=== PATIENT | female | born 1960 | race Caucasian/White ===

== ENCOUNTER → 2016-06-01 | Outpatient (CLI) | payer OTHER ==
[~2016-06-01] VITALS: Ht 172.7 cm; Wt 75.7 kg
[~2016-06-01] MED LIST: FLEXERIL10 MG PO; LEVAQUIN750 MG PO; NORCO 5/3251 TABLET PO; PERCOCET 5/31 TABLET PO; PREDNISONE20 MG PO; PROAIR RESPICL90 MCG IH; PROVENTIL HFA6.7 GM IH; TYLENOL WITH C1 EACH PO; ZOFRAN ODT4 MG PO
== END | disposition home or self-care (01) ==
LOC: AMB 08:36
DX: R10.31 Right lower quadrant pain (principal); K21.9 Gastro-esophageal reflux disease without esophagitis; K20.9 Esophagitis, unspecified; K44.9 Diaphragmatic hernia without obstruction or gangrene; R10.13 Epigastric pain; R19.5 Other fecal abnormalities; D12.0 Benign neoplasm of cecum; D12.3 Benign neoplasm of transverse colon; M54.5 Low back pain
CPT/HCPCS: 88305; 88342 TC; B4087; J2405; J3010

== ENCOUNTER 2016-06-09 21:00 | Emergency (ER) | payer OTHER ==
[~2016-06-09] VITALS: Ht 172.7 cm; Wt 77.6 kg
[~2016-06-09 21:00] MED LIST changes: -ZOFRAN ODT4 MG PO
[2016-06-09 21:59] LABS: ADD MIUA? NO; BILIRUBIN NEGATIVE; BLOOD NEGATIVE; COLOR YELLOW ((YELLOW)); GLUCOSE (STRIP) NEGATIVE; KETONES NEGATIVE; LEUKOCYTES NEGATIVE; NITRITE NEGATIVE; PROTEIN (STRIP) NEGATIVE; SPECIFIC GRAVITY 1.019 (1.000-1.030); UCUL ADDED? NO; UROBILINOGEN 0.2 MG/DL (0.2-1.0)
[2016-06-09 22:02] LABS: MCH 32.8 PG (29.0-34.0); MCV 93.7 FL (83-99); MEAN PLAT.VOLUME 9.5 uM^3 (9.5-12.4); PLATELET COUNT 203 K/uL (156-360); RBC DIS.WIDTH-CV 11.9 % (11.8-14.6); RBC DIS.WIDTH-SD 39.8 % (39-53); RED BLOOD COUNT 4.27 M/uL (3.80-5.20); WHITE BLOOD COUNT 5.8 K/uL (4.1-10.2)
[2016-06-09 22:14] LABS: CHLORIDE 104 mEq/L (99-109); POTASSIUM 4.1 mEq/L (3.7-5.4); SODIUM 139 mEq/L (136-147)
[2016-06-09 22:16] LABS: GLUCOSE 93 mg/dL (70-99)
[2016-06-09 22:17] LABS: ANION GAP 11 MEQ/L (2-14)
[2016-06-09 22:18] LABS: TOTAL BILIRUBIN 0.2 mg/dL (0.0-1.0)
[2016-06-09 22:20] LABS: ALKALINE PHOSPHATASE 89 IU/L (3-129); GFR ESTIMATE (CALCULATED) > 59 mL/min/
[2016-06-09 22:21] LABS: UREA NITROGEN (BUN) 16 mg/dL (9-23)
[2016-06-09 22:23] LABS: LIPASE 22 U/L (1.0-51.0)
[2016-06-09 22:32] LABS: QUANTITATIVE HCG 4.1 MIU/ML
[2016-06-10] MEDS ORDERED: PERCOCET 5/31 TABLET PO (00:52)
[2016-06-10] MEDS ORDERED: ZOFRAN ODT4 MG PO (00:52)
[2016-06-10 01:04] VITALS: BP 98/65
== END 2016-06-10 01:05 | disposition home or self-care (01) ==
LOC: EME 21:00
DX: R10.31 Right lower quadrant pain (principal); K92.1 Melena; Z98.890 Other specified postprocedural states; R19.09 Other intra-abdominal and pelvic swelling, mass and lump; F17.200 Nicotine dependence, unspecified, uncomplicated
CPT/HCPCS: 74177; 80053; 81003; 83690; 84702; 85027; 99281; 99285; J1170; J2405; J7030

== ENCOUNTER → 2016-06-23 | Outpatient (CLI) | payer OTHER ==
[~2016-06-23] MED LIST changes: +ZOFRAN ODT4 MG PO
== END | disposition home or self-care (01) ==
LOC: CDC 08:35
DX: Z01.810 Encounter for preprocedural cardiovascular examination (principal); D12.0 Benign neoplasm of cecum
CPT/HCPCS: 93000

== ENCOUNTER 2016-06-28 05:22 | Inpatient (IN) | payer OTHER ==
[~2016-06-28] VITALS: Ht 180.3 cm; Wt 75.7 kg
[2016-06-28 06:39] VITALS: BP 133/81
[2016-06-28 06:53] VITALS: BP 133/81
[2016-06-28 16:28] VITALS: BP 145/85
[2016-06-28 18:36] VITALS: BP 146/94
[2016-06-28 22:13] VITALS: BP 136/74
[2016-06-29 02:43] VITALS: BP 134/86
[2016-06-29 07:14] LABS: ALKALINE PHOSPHATASE 57 IU/L (3-129); ANION GAP 8 MEQ/L (2-14); CHLORIDE 105 MEQ/L (99-109); GFR ESTIMATE (CALCULATED) > 59 mL/min/; GLUCOSE 87 mg/dL (70-99); MAGNESIUM 1.5 mg/dl (1.3-2.7); POTASSIUM 3.7 MEQ/L (3.7-5.4); SAMPLE HEMOLYSIS CHECK 0; SAMPLE ICTERIC CHECK 0; SAMPLE LIPEMIA CHECK 0; SODIUM 139 MEQ/L (136-147); TOTAL BILIRUBIN 0.5 MG/DL (0.0-1.0); UREA NITROGEN (BUN) 12 mg/dL (9-23)
[2016-06-29 07:42] VITALS: BP 168/77
[2016-06-29 07:50] LABS: HEMATOCRIT 33.4 % (36.0-46.0); MCH 31.7 PG (29.0-34.0); MCHC 34.4 G/DL (30.0-36.0); MEAN PLAT.VOLUME 9.5 uM^3 (9.5-12.4); PLATELET COUNT 149 K/uL (156-360); RBC DIS.WIDTH-CV 12.1 % (11.8-14.6); RBC DIS.WIDTH-SD 41.1 % (39-53); RED BLOOD COUNT 3.63 M/uL (3.80-5.20); WHITE BLOOD COUNT 9.2 K/uL (4.1-10.2)
[2016-06-29 08:32] VITALS: BP 134/76
[2016-06-29 12:10] VITALS: BP 160/79
[2016-06-29 16:06] VITALS: BP 159/71
[2016-06-29 22:42] VITALS: BP 131/80
[2016-06-30 03:15] VITALS: BP 141/80
[2016-06-30 06:50] LABS: HEMATOCRIT 34.1 % (36.0-46.0); MCH 31.9 PG (29.0-34.0); MCHC 34.3 G/DL (30.0-36.0); MCV 92.9 FL (83-99); MEAN PLAT.VOLUME 10.2 uM^3 (9.5-12.4); PLATELET COUNT 150 K/uL (156-360); RBC DIS.WIDTH-CV 11.9 % (11.8-14.6); RBC DIS.WIDTH-SD 40.5 % (39-53); RED BLOOD COUNT 3.67 M/uL (3.80-5.20); WHITE BLOOD COUNT 8.3 K/uL (4.1-10.2)
[2016-06-30 07:24] LABS: ANION GAP 9 MEQ/L (2-14); CHLORIDE 104 MEQ/L (99-109); GFR ESTIMATE (CALCULATED) > 59 mL/min/; GLUCOSE 80 mg/dL (70-99); MAGNESIUM 1.5 mg/dl (1.3-2.7); POTASSIUM 3.8 MEQ/L (3.7-5.4); SAMPLE HEMOLYSIS CHECK 0; SAMPLE ICTERIC CHECK 0; SAMPLE LIPEMIA CHECK 0; SODIUM 141 MEQ/L (136-147); UREA NITROGEN (BUN) 11 mg/dL (9-23)
[2016-06-30 08:08] VITALS: BP 135/82
[2016-06-30 12:00] VITALS: BP 133/86
[2016-06-30 17:05] VITALS: BP 156/84
[2016-06-30 19:30] VITALS: BP 162/92
[2016-07-01 03:07] VITALS: BP 135/78
[2016-07-01 06:37] LABS: HEMATOCRIT 30.5 % (36.0-46.0); MCH 31.8 PG (29.0-34.0); MCHC 34.8 G/DL (30.0-36.0); MCV 91.6 FL (83-99); MEAN PLAT.VOLUME 9.9 uM^3 (9.5-12.4); PLATELET COUNT 132 K/uL (156-360); RBC DIS.WIDTH-CV 11.9 % (11.8-14.6); RBC DIS.WIDTH-SD 40.1 % (39-53); RED BLOOD COUNT 3.33 M/uL (3.80-5.20); WHITE BLOOD COUNT 5.8 K/uL (4.1-10.2)
[2016-07-01 06:49] LABS: ANION GAP 8 MEQ/L (2-14); CHLORIDE 104 MEQ/L (99-109); GFR ESTIMATE (CALCULATED) > 59 mL/min/; GLUCOSE 93 mg/dL (70-99); MAGNESIUM 1.5 mg/dl (1.3-2.7); POTASSIUM 3.6 MEQ/L (3.7-5.4); SAMPLE HEMOLYSIS CHECK 0; SAMPLE ICTERIC CHECK 0; SAMPLE LIPEMIA CHECK 0; SODIUM 140 MEQ/L (136-147); UREA NITROGEN (BUN) 8 mg/dL (9-23)
[2016-07-01 09:20] VITALS: BP 124/78
[2016-07-01 16:46] VITALS: BP 158/88
[2016-07-01 20:08] VITALS: BP 155/80
[2016-07-01 22:46] VITALS: BP 120/80
[2016-07-02 03:33] VITALS: BP 151/86
[2016-07-02 07:20] LABS: MCHC 34.7 G/DL (30.0-36.0); MCV 92.2 FL (83-99); PLATELET COUNT 144 K/uL (156-360); RBC DIS.WIDTH-CV 12.1 % (11.8-14.6); RBC DIS.WIDTH-SD 40.7 % (39-53); RED BLOOD COUNT 3.47 M/uL (3.80-5.20); WHITE BLOOD COUNT 5.7 K/uL (4.1-10.2)
[2016-07-02 07:40] LABS: ANION GAP 8 MEQ/L (2-14); CHLORIDE 104 MEQ/L (99-109); GFR ESTIMATE (CALCULATED) > 59 mL/min/; GLUCOSE 91 mg/dL (70-99); MAGNESIUM 1.6 mg/dl (1.3-2.7); POTASSIUM 3.8 MEQ/L (3.7-5.4); SAMPLE HEMOLYSIS CHECK 0; SAMPLE ICTERIC CHECK 0; SAMPLE LIPEMIA CHECK 0; SODIUM 141 MEQ/L (136-147); UREA NITROGEN (BUN) 7 mg/dL (9-23)
[2016-07-02 07:51] VITALS: BP 159/91
[2016-07-02 11:30] VITALS: BP 123/82
[2016-07-02 15:52] VITALS: BP 139/93
[2016-07-02 19:33] VITALS: BP 143/87
[2016-07-02 22:54] VITALS: BP 138/74
[2016-07-03 08:13] VITALS: BP 139/74
[2016-07-03] MEDS ORDERED: DILAUDID2 MG PO (08:26)
[2016-07-03 16:00] VITALS: BP 142/87
[2016-07-03 16:17] LABS: C DIFF TOXIN NEGATIVE (NEGATIVE)
[2016-07-03 16:30] VITALS: BP 142/87
[2016-07-03 16:31] LABS: PROBE CHECK PASS; SPECIMEN PROCESSING CONTROL PASS
[2016-07-03 16:45] VITALS: BP 145/74
[2016-07-03 23:09] VITALS: BP 134/90
[2016-07-04 07:20] LABS: HEMATOCRIT 35.2 % (36.0-46.0); MCH 31.9 PG (29.0-34.0); MCHC 34.9 G/DL (30.0-36.0); MCV 91.4 FL (83-99); MEAN PLAT.VOLUME 9.9 uM^3 (9.5-12.4); PLATELET COUNT 185 K/uL (156-360); RBC DIS.WIDTH-SD 40.4 % (39-53); RED BLOOD COUNT 3.85 M/uL (3.80-5.20); WHITE BLOOD COUNT 7.1 K/uL (4.1-10.2)
[2016-07-04 07:43] VITALS: BP 118/77
[2016-07-04 07:45] LABS: ANION GAP 9 MEQ/L (2-14); CHLORIDE 104 MEQ/L (99-109); GFR ESTIMATE (CALCULATED) > 59 mL/min/; GLUCOSE 91 mg/dL (70-99); SAMPLE HEMOLYSIS CHECK 0; SAMPLE ICTERIC CHECK 0; SAMPLE LIPEMIA CHECK 0; SODIUM 139 MEQ/L (136-147); UREA NITROGEN (BUN) 11 mg/dL (9-23)
[2016-07-04] MEDS ORDERED: SIMETHICONE125 M1 PO (10:58)
[2016-07-04] MEDS ORDERED: COLACE100 MG PO (10:58)
== END 2016-07-04 12:23 | disposition home or self-care (01) | DRG 331 ==
LOC: 2SOUTH → 5EAST 05:22 → 2SOUTH 05:22 → 5EAST 14:16 → 2SOUTH 14:24 → 5EAST 07-04 12:23
PROVIDERS: Surgery
DX: D12.0 Benign neoplasm of cecum (principal); K59.00 Constipation, unspecified; G43.909 Migraine, unspecified, not intractable, without status migrainosus; F41.9 Anxiety disorder, unspecified; F32.9 Major depressive disorder, single episode, unspecified; F17.200 Nicotine dependence, unspecified, uncomplicated
CPT/HCPCS: 74020; 80048; 80053; 83735; 84100; 84443; 85027; 87493; 88307; J0744; J1170; J1650; J2250; J2405; J2550; J2710; J3010; J7120

== ENCOUNTER 2016-07-09 21:04 | Emergency (ER) | payer OTHER ==
[~2016-07-09] VITALS: Ht 172.7 cm; Wt 75.4 kg
[~2016-07-09 21:04] MED LIST changes: +COLACE100 MG PO; +DILAUDID2 MG PO; +SIMETHICONE125 M1 PO
[2016-07-09 21:58] LABS: HEMATOCRIT 33.9 % (36.0-46.0); MCH 31.9 PG (29.0-34.0); MCHC 34.2 G/DL (30.0-36.0); MCV 93.1 FL (83-99); RBC DIS.WIDTH-CV 11.8 % (11.8-14.6); RED BLOOD COUNT 3.64 M/uL (3.80-5.20); WHITE BLOOD COUNT 6.7 K/uL (4.1-10.2)
[2016-07-09 21:59] LABS: MEAN PLAT.VOLUME 9.3 uM^3 (9.5-12.4); PLATELET COUNT 241 K/uL (156-360)
[2016-07-09 22:06] LABS: CHLORIDE 104 mEq/L (99-109); POTASSIUM 3.9 mEq/L (3.7-5.4); SODIUM 140 mEq/L (136-147)
[2016-07-09 22:08] LABS: GLUCOSE 110 mg/dL (70-99)
[2016-07-09 22:09] LABS: ANION GAP 7 MEQ/L (2-14)
[2016-07-09 22:10] LABS: TOTAL BILIRUBIN 0.3 mg/dL (0.0-1.0)
[2016-07-09 22:11] LABS: SERUM ETHYL ALCOHOL < 10 mg/dL
[2016-07-09 22:12] LABS: ALKALINE PHOSPHATASE 104 IU/L (3-129); GFR ESTIMATE (CALCULATED) 50 mL/min/
[2016-07-09 22:15] LABS: SALICYLATE < 5.0 MG/DL (15-30); UREA NITROGEN (BUN) 22 mg/dL (9-23)
[2016-07-09 23:14] VITALS: BP 133/72
== END 2016-07-09 23:14 | disposition home or self-care (01) ==
LOC: EME → EDBD 21:04 → EME 21:04
PROVIDERS: Emergency Medicine
DX: F41.9 Anxiety disorder, unspecified (principal); F43.9 Reaction to severe stress, unspecified; F17.200 Nicotine dependence, unspecified, uncomplicated
CPT/HCPCS: 80053; 81003; 85027; 90837; 99281; 99285; G0480

== ENCOUNTER → 2016-09-08 | Outpatient (CLI) | payer OTHER ==
[~2016-09-08] VITALS: Ht 172.7 cm; Wt 73.5 kg
[~2016-09-08] MED LIST changes: +PRILOSEC20 MG PO
== END | disposition home or self-care (01) ==
LOC: AMB 08-31 08:00
PROC: 0DBL8ZX Excision of Transverse Colon, Via Natural or Artificial Opening Endoscopic, Diagnostic (ICD-10-PCS; principal; 2016-09-08)
DX: Z12.11 Encounter for screening for malignant neoplasm of colon (principal); D12.3 Benign neoplasm of transverse colon; Z86.010 Personal history of colon polyps; Z98.890 Other specified postprocedural states; Z88.0 Allergy status to penicillin; Z88.1 Allergy status to other antibiotic agents; Z88.6 Allergy status to analgesic agent; Z88.8 Allergy status to other drugs, medicaments and biological substances
CPT/HCPCS: 88305

== ENCOUNTER 2017-02-18 17:11 | Emergency (ER) | payer OTHER ==
[~2017-02-18] VITALS: Ht 165.1 cm; Wt 79.0 kg
[2017-02-18 18:00] LABS: EOSINOPHIL (%) 1.7 % (0-5); EOSINOPHIL COUNT 0.1 K/uL (0-0.3); HEMATOCRIT 36.1 % (36.0-46.0); IMMATURE GRANULOCYTE (%) 0.2 % (0.0-0.7); INSTRUMENT ABS NEUTROPHIL CT 2.9 K/uL; LYMPHOCYTE COUNT 2.4 K/uL (1.0-2.8); MCHC 34.6 G/DL (30.0-36.0); MCV 92.3 FL (83-99); MEAN PLAT.VOLUME 9.8 uM^3 (9.5-12.4); MONOCYTE (%) 7.9 % (3-12); MONOCYTE COUNT 0.5 K/uL (0-0.8); NEUTROPHIL (%) 49.5 % (45-76); NEUTROPHIL COUNT 2.9 K/uL (1.8-6.4); PLATELET COUNT 173 K/uL (156-360); RBC DIS.WIDTH-CV 11.9 % (11.8-14.6); RBC DIS.WIDTH-SD 40.4 % (39-53); RED BLOOD COUNT 3.91 M/uL (3.80-5.20); WHITE BLOOD COUNT 5.9 K/uL (4.1-10.2)
[2017-02-18 18:08] LABS: CHLORIDE 104 mEq/L (99-109); POTASSIUM 3.8 mEq/L (3.7-5.4); SODIUM 138 mEq/L (136-147)
[2017-02-18 18:10] LABS: GLUCOSE 96 mg/dL (70-99)
[2017-02-18 18:11] LABS: ANION GAP 13 MEQ/L (2-14)
[2017-02-18 18:13] LABS: GFR ESTIMATE (CALCULATED) > 59 mL/min/
[2017-02-18 18:14] LABS: UREA NITROGEN (BUN) 19 mg/dL (9-23)
[2017-02-18 20:26] LABS: INTER. NORMALIZED RATIO 0.9; PROTHROMBIN TIME 10.2 SEC (10.2-12.9)
[2017-02-18] MEDS ORDERED: FIORICET 50-301 EACH PO (20:28)
[2017-02-18 20:29] LABS: PTT 31.4 SEC (25-37)
[2017-02-18 20:42] VITALS: BP 126/84
== END 2017-02-18 20:45 | disposition home or self-care (01) ==
LOC: EME 17:11
PROVIDERS: Emergency Medicine
DX: G43.909 Migraine, unspecified, not intractable, without status migrainosus (principal); Z87.891 Personal history of nicotine dependence; Z88.6 Allergy status to analgesic agent; Z88.1 Allergy status to other antibiotic agents; Z88.0 Allergy status to penicillin
CPT/HCPCS: 70450; 80048; 85025; 85610; 85730; 99281; 99285; J1200; J2765; J7030

== ENCOUNTER 2017-02-24 17:45 | Emergency (ER) | payer OTHER ==
[~2017-02-24] VITALS: Ht 172.7 cm; Wt 74.4 kg
[~2017-02-24 17:45] MED LIST changes: +FIORICET 50-301 EACH PO
[2017-02-24 21:24] LABS: HEMATOCRIT 38.6 % (36.0-46.0); MCH 31.3 PG (29.0-34.0); MCHC 33.7 G/DL (30.0-36.0); MEAN PLAT.VOLUME 9.3 uM^3 (9.5-12.4); PLATELET COUNT 172 K/uL (156-360); RBC DIS.WIDTH-CV 11.9 % (11.8-14.6); RBC DIS.WIDTH-SD 40.9 % (39-53); RED BLOOD COUNT 4.15 M/uL (3.80-5.20); WHITE BLOOD COUNT 5.5 K/uL (4.1-10.2)
[2017-02-24 21:53] LABS: CHLORIDE 108 mEq/L (99-109); POTASSIUM 3.9 mEq/L (3.7-5.4); SODIUM 142 mEq/L (136-147)
[2017-02-24 21:55] LABS: GLUCOSE 94 mg/dL (70-99)
[2017-02-24 21:57] LABS: ANION GAP 13 MEQ/L (2-14); TOTAL BILIRUBIN 0.4 mg/dL (0.0-1.0)
[2017-02-24 21:59] LABS: ALKALINE PHOSPHATASE 91 IU/L (3-129); GFR ESTIMATE (CALCULATED) > 59 mL/min/
[2017-02-24 22:00] LABS: UREA NITROGEN (BUN) 22 mg/dL (9-23)
[2017-02-24] MEDS ORDERED: ANTIVERT25 MG PO (23:08)
[2017-02-24 23:26] VITALS: BP 131/79
== END 2017-02-24 23:28 | disposition home or self-care (01) ==
LOC: EME 17:45
PROVIDERS: Physician Assistant
DX: R42 Dizziness and giddiness (principal); E86.0 Dehydration; R51 Headache; F17.200 Nicotine dependence, unspecified, uncomplicated; Z88.0 Allergy status to penicillin; Z88.8 Allergy status to other drugs, medicaments and biological substances
CPT/HCPCS: 70450; 80053; 81003; 85027; 99281; 99284; J2405; J7030

== ENCOUNTER 2017-07-10 09:00 | Emergency (ER) | payer OTHER ==
[~2017-07-10] VITALS: Ht 172.7 cm; Wt 80.8 kg
[~2017-07-10 09:00] MED LIST changes: +ANTIVERT25 MG PO
[2017-07-10 12:12] VITALS: BP 140/86
== END 2017-07-10 12:12 | disposition home or self-care (01) ==
LOC: EME 09:00
DX: S61.012A Laceration without foreign body of left thumb without damage to nail, initial encounter (principal); S61.512A Laceration without foreign body of left wrist, initial encounter; W25.XXXA Contact with sharp glass, initial encounter; Z23 Encounter for immunization; K21.9 Gastro-esophageal reflux disease without esophagitis; F17.200 Nicotine dependence, unspecified, uncomplicated; Z88.6 Allergy status to analgesic agent; Z88.1 Allergy status to other antibiotic agents; Z88.0 Allergy status to penicillin
CPT/HCPCS: 73090; 73130; 99281; 99284

== ENCOUNTER 2017-07-17 14:22 | Emergency (ER) | payer OTHER ==
[~2017-07-17] VITALS: Ht 172.7 cm; Wt 79.8 kg
[2017-07-17 15:01] VITALS: BP 147/96
[2017-07-17] MEDS ORDERED: VIBRAMYCIN100 MG PO (16:19)
== END 2017-07-17 16:44 | disposition home or self-care (01) ==
LOC: EME 14:22
DX: S51.812D Laceration without foreign body of left forearm, subsequent encounter (principal); L03.012 Cellulitis of left finger; S61.012D Laceration without foreign body of left thumb without damage to nail, subsequent encounter; F17.200 Nicotine dependence, unspecified, uncomplicated; Z88.0 Allergy status to penicillin; Z88.6 Allergy status to analgesic agent; Z88.1 Allergy status to other antibiotic agents
CPT/HCPCS: 99281; 99284